=== PATIENT | male | born 1990 | race Two or more races ===

== ENCOUNTER 2022-04-17 12:22 | Inpatient (IN) | payer OTHER, SELFPAY ==
--- NOTE | ~2022-04-17 | CT_ITS ---
EXAMINATION: CT ABDOMEN AND PELVIS WITHOUT CONTRAST CLINICAL INFORMATION: Abdominal pain and nausea. COMPARISON: None TECHNIQUE: Multidetector volumetric imaging was performed from the superior aspect of the liver through the pubic symphysis. Sagittal and coronal reformatted images were obtained on the technologist's workstation. This CT examination was performed using dose optimization techniques as appropriate, variously including the following: *Automated exposure control *Adjustment of mA and/or kV according to patient size (this includes techniques or standardized protocols for targeted exams where dose is matched to indication/reason for exam; i.e. extremities or head) *Use of iterative reconstruction technique DLP: 561 mGy-cm FINDINGS: LUNG BASES: Normal. No pulmonary consolidation or pleural effusion. LIVER: The liver has normal size and shape. There appears to be mild steatosis with small region of sparing around the gallbladder fossa. No evidence of liver mass. GALLBLADDER AND BILIARY TREE: Gallbladder is without radiopaque stones, wall thickening or pericholecystic fluid. No dilated bile ducts. PANCREAS: Normal. No edema, pancreatic ductal dilatation or mass. SPLEEN: Normal. ADRENAL GLANDS: Normal. KIDNEYS AND URETERS: The kidneys have normal size and cortical thickness. No perinephric edema or fluid collection. No urolithiasis or hydroureteronephrosis. BLADDER: The bladder is incompletely distended and has a wall thickness of 5 - 6 mm. No focal bladder lesion. No perivesical edema. BOWEL AND PERITONEUM: Stomach and small bowel are unremarkable. No dilated loops of bowel. The appendix is normal. No overt bowel wall thickening or mesenteric fat stranding. No free fluid or pneumoperitoneum. ABDOMINAL WALL: Small fat-containing umbilical hernia is noted. VASCULATURE: Normal for a noncontrast examination. LYMPH NODES: No pathologic sized lymph nodes in the abdomen or pelvis. No inguinal lymphadenopathy. PELVIC VISCERA: Prostate gland is grossly normal. No pelvic mass or pelvic free fluid. MUSCULOSKELETAL: Unremarkable. CT/CT abdomen pelvis wo IV con IMPRESSION: * The gastrointestinal tract is normal. No evidence of enteritis or appendicitis. * Mild steatosis of the liver. * Small fat-containing umbilical hernia is present. * There appears to be borderline generalized thickening of the urinary bladder wall, a finding of questionable if any significance. No evidence of focal bladder lesion, and there is no perivesical edema.
[2022-04-17 12:41] VITALS: BP 136/104; PULSE 113; RESP 18; TEMP 36.5; O2SAT 97; BMI 28.6
--- NOTE | 2022-04-17 12:45 | ED.NAVMDI ---
HPI - Nausea/Vomiting/Diarrhea General Chief complaint: General Medical <Jailene Boyd MD - Last Filed: 04/17/22 12:51> Stated complaint: Dehydrated Dizzy Weak <Jailene Boyd MD - Last Filed: 04/17/22 12:51> Time Seen by Provider: 04/17/22 12:52 <Jailene Boyd MD - Last Filed: 04/17/22 12:51> Source: patient <DAYNA Dai - Last Filed: 04/17/22 22:08> Mode of arrival: ambulatory <DAYNA Dai - Last Filed: 04/17/22 22:08> Limitations: no limitations <DAYNA Dai - Last Filed: 04/17/22 22:08> History of Present Illness HPI Narrative: Edis is a 31 yo male with no PMHx who presents today to the emergency department with a CC of sudden onset of increased thirst and increased urination. Pt said his symptoms started this morning where he woke up exceptionally thirsty. He tried water, milk, juice, amirah isi, but nothing has helped. He was able to eat Vicino today but says that everything tastes like nickels. He additionally endorses some nausea, abdominal pain, and fatigue, but denies fevers, chills, shortness of breath, chest pain, vomiting, diarrhea, constipation, or blood in the urine, as well as burning with urination. He has never had this happen before and feels like his symptoms are getting progressively worse. Patient's mother has a history of diabetes. <DAYNA Dai - Last Filed: 04/17/22 22:08> MD elicited complaint: nausea, abdominal pain and other (polydipsia, polyuria) <DAYNA Dai - Last Filed: 04/17/22 22:08> Onset (ago): hour(s) <DAYNA Dai - Last Filed: 04/17/22 22:08> Associated nausea: Yes <DAYNA Dai - Last Filed: 04/17/22 22:08> Associated abdominal pain: Yes <DAYNA Dai - Last Filed: 04/17/22 22:08> Location of pain: epigastric <DAYNA Dai - Last Filed: 04/17/22 22:08> Radiation: diffuse <DAYNA Dai - Last Filed: 04/17/22 22:08> Pain consistency: constant <DAYNA Dai - Last Filed: 04/17/22 22:08> Severity: severe <DAYNA Dai - Last Filed: 04/17/22 22:08> Quality: aching <DAYNA Dai - Last Filed: 04/17/22 22:08> Exacerbating factors: none <DAYNA Dai - Last Filed: 04/17/22 22:08> Relieving factors: none <DAYNA Dai - Last Filed: 04/17/22 22:08> Associated symptoms: fatigue <DAYNA Dai - Last Filed: 04/17/22 22:08> Related Data Home medications: Home Medications Medication Instructions Recorded Confirmed No Known Home Meds 04/17/22 04/17/22 <Jailene Boyd MD - Last Filed: 04/17/22 12:51> Allergies/Adverse reactions: Allergies Allergy/AdvReac Type Severity Reaction Status Date / Time No Known Allergies Allergy Verified 04/17/22 12:39 <Jailene Boyd MD - Last Filed: 04/17/22 12:51> Review of Systems Constitutional: Constitutional: Reports no additional constitutional complaints, Denies chills, Reports fatigue, Denies fever(s) and Denies night sweats <DAYNA Dai - Last Filed: 04/17/22 22:08> Eyes: Eyes: Reports no additional eye complaints, Denies blurry vision, Denies change in vision, Denies diplopia, Denies eye discharge, Denies loss of vision and Denies eye pain <DAYNA Dai - Last Filed: 04/17/22 22:08> ENT: Denies dizziness <DAYNA Dai - Last Filed: 04/17/22 22:08> Cardiovascular: Cardiovascular: Reports no additional cardiovascular complaints, Denies chest pain, Denies lightheadedness, Denies Loss of Consciousness and Denies dyspnea <DAYNA Dai - Last Filed: 04/17/22 22:08> Respiratory: Respiratory: Reports no additional respiratory complaints and Denies dyspnea <DAYNA Dai - Last Filed: 04/17/22 22:08> Gastrointestinal: Gastrointestinal: Reports abdominal pain and Reports nausea <DAYNA Dai - Last Filed: 04/17/22 22:08> Genitourinary: Genitourinary: Reports no additional male genitourinary complaints, Denies hematuria, Denies oliguria, Denies difficulty urinating, Denies dysuria, Denies urinary frequency, Denies urinary hesitancy, Denies urinary incontinence and Denies urinary urgency <DAYNA Dai - Last Filed: 04/17/22 22:08> Musculoskeletal: Musculoskeletal: Reports no additional musculoskeletal complaints, Denies numbness and Denies tingling <DAYNA Dai - Last Filed: 04/17/22 22:08> Neurologic: Denies dizziness, Denies loss of vision, Denies numbness and Denies tingling <DAYNA Dai - Last Filed: 04/17/22 22:08> Psychiatric: Psychiatric: Reports no additional psychiatric complaints <DAYNA Dai - Last Filed: 04/17/22 22:08> Endocrine: Endocrine: Reports no additional endocrine complaints, Reports fatigue, Reports polydipsia and Reports polyuria <DAYNA Dai - Last Filed: 04/17/22 22:08> Hematologic/Lymphatic: Hematologic/Lymphatic: Reports no additional hematologic/lymphatic complaints <DAYNA Dai - Last Filed: 04/17/22 22:08> Allergic/Immunologic: Allergic/Immunologic: Reports no additional allergic/immunologic complaints <DAYNA Dai - Last Filed: 04/17/22 22:08> FOR[facility]LY [facility] Past Medical History Attestation statement: The following information was validated with the patient. <DAYNA Dai - Last Filed: 04/17/22 22:08> Source: old records reviewed and nursing notes reviewed <DAYNA Dai - Last Filed: 04/17/22 22:08> Family History Family History: Family History Mother Diabetes <Jailene Boyd MD - Last Filed: 04/17/22 12:51> Social History Social History: Social History Alcohol intake: never Patient Tobacco Use Status: Never used Tobacco Use of substances other than those prescribed or required for medical reasons: No Advance Directives: No <Jailene Boyd MD - Last Filed: 04/17/22 12:51> Physical Exam Vital Signs: Vital Signs: Last Vital Signs Temp 98.0 F 04/17/22 19:32 Pulse 78 04/17/22 19:32 Resp 18 04/17/22 19:32 BP 101/66 04/17/22 19:32 Pulse Ox 96 04/17/22 19:32 O2 Del Method 04/17/22 19:32 BMI result Body Mass Index 28.6 <Jailene Boyd MD - Last Filed: 04/17/22 12:51> Vital Signs: Last Vital Signs Temp 98.0 F 04/17/22 19:32 Pulse 78 04/17/22 19:32 Resp 18 04/17/22 19:32 BP 101/66 04/17/22 19:32 Pulse Ox 96 04/17/22 19:32 O2 Del Method 04/17/22 19:32 BMI result Body Mass Index 28.6 <DAYNA Dai - Last Filed: 04/17/22 22:08> Const: General: cooperative, no acute distress, alert and awake <DAYNA Dai - Last Filed: 04/17/22 22:08> Nutritional Appearance: well nourished <DAYNA Dai - Last Filed: 04/17/22 22:08> Orientation/consciousness: patient oriented x3 <DAYNA Dai - Last Filed: 04/17/22 22:08> Limitations: no limitations <DAYNA Dai - Last Filed: 04/17/22 22:08> HEENT: Head: Yes normal to inspection and Yes atraumatic <DAYNA Dai - Last Filed: 04/17/22 22:08> Ears: hearing grossly normal bilaterally and external ears normal <DAYNA Dai - Last Filed: 04/17/22 22:08> General nose exam: Normal external nose present, no nasal discharge noted and no epistaxis <DAYNA Dai - Last Filed: 04/17/22 22:08> Face and sinus: Yes normal facial exam, No abrasion and No laceration <Tomasa FrancesDAYNA - Last Filed: 04/17/22 22:08> Mouth: Normal oral and palatal mucosa present, no drooling and no muffled voice <Tomasa FrancesDAYNA - Last Filed: 04/17/22 22:08> Eyes: General: appearance normal, both eyes and all related structures <Tomasa FrancesDAYNA - Last Filed: 04/17/22 22:08> Periorbital: periorbital findings normal <Tomasa Frances [place] - Last Filed: 04/17/22 22:08> Eyelids: Yes eyelids normal <Tomasa Frances [place] - Last Filed: 04/17/22 22:08> Conjunctivae: conjunctivae normal <Tomasa FrancesDAYNA - Last Filed: 04/17/22 22:08> Pupils: Equal, round and reactive pupils present <Tomasa FrancesDAYNA - Last Filed: 04/17/22 22:08> EOM: EOMs intact bilaterally <Tomasa LainezDAYNA benz - Last Filed: 04/17/22 22:08> Neck: Neck: Yes normal visual inspection, Yes full ROM and Yes no lymphadenopathy <Tomasa FrancesDAYNA - Last Filed: 04/17/22 22:08> Chest: Chest palpation & inspection: normal inspection of the chest <Tomasa LainezDAYNA benz - Last Filed: 04/17/22 22:08> Resp: Effort & Inspection: normal respiratory effort and able to speak in complete sentences <Tomasatomeka LainezDAYNA benz - Last Filed: 04/17/22 22:08> Auscultation: clear to auscultation bilaterally <Tomasa Laineztuyet [place] - Last Filed: 04/17/22 22:08> Cardio: Rate: tachycardic <Tomasa LainezDAYNA benz - Last Filed: 04/17/22 22:08> Rhythm: regular rhythm <Tomasa LainezDAYNA benz - Last Filed: 04/17/22 22:08> GI: Inspection: Yes normal to inspection <Tomasa LainezDAYNA benz - Last Filed: 04/17/22 22:08> Palpation (GI): Soft to palpation, not firm, Tenderness to palpation present (GI) in the epigastrum, in the LLQ, in the RLQ, in the LUQ and in the RUQ, no guarding and not rigid <DAYNA Dai - Last Filed: 04/17/22 22:08> Auscultation: normal bowel sounds <DAYNA Dai - Last Filed: 04/17/22 22:08> Neuro: General: patient oriented x3 and moves all extremities <DAYNA Dai - Last Filed: 04/17/22 22:08> Cranial nerves: Yes Equal, round and reactive pupils present <DAYNA Dai - Last Filed: 04/17/22 22:08> Cognition (Neuro): normal cognition <DAYNA Dai - Last Filed: 04/17/22 22:08> Motor exam (neuro): 5/5 motor strength present throughout <DAYNA Dai - Last Filed: 04/17/22 22:08> Sensory Exam: Normal double simultaneous stimulation for sensation <DAYNA Dai - Last Filed: 04/17/22 22:08> Coordination: [id number] test normal <DAYNA Dai - Last Filed: 04/17/22 22:08> Extrem: General: Yes normal to inspection, Yes full ROM and Yes capillary refill normal <DAYNA Dai - Last Filed: 04/17/22 22:08> Psych: Appearance: grossly normal <DAYNA Dai - Last Filed: 04/17/22 22:08> Mental Status: mental status grossly normal <DAYNA Dai - Last Filed: 04/17/22 22:08> Affect: normal affect <DAYNA Dai - Last Filed: 04/17/22 22:08> Attitude: cooperative <DAYNA Dai - Last Filed: 04/17/22 22:08> Thought process: Normal thought process present <DAYNA Dai - Last Filed: 04/17/22 22:08> Thought content: Normal thought content present <DAYNA Dai - Last Filed: 04/17/22 22:08> Insight: Good insight present (Psych) <DAYNA Dai - Last Filed: 04/17/22 22:08> Course Course Course Narrative: rme <Jailene Boyd MD - Last Filed: 04/17/22 12:51> marky Randhawa is a 31 yo male with no PMHx who presents today to the emergency department with a CC of polydipsia, polyuria, with abdominal pain and fatigue with an onset of 24 hours. Pt denies all other associated signs and symptoms. POC glucose at bedside is >600 mg/dL which is highly suggestive of hyperosmolar hyperglycemic state. 13:03 labs still pending. <DAYNA Dai - Last Filed: 04/17/22 22:08> Reevaluation(s) Reevaluation #1: 13:04 WBC elevated to 14.2, Hgb elevated 5.95-suspicious for infectious process. Blood gas shows pH of 7.32, HCO3 low at 17-slightly acidotic, additional POC glucose again greater than 600 UA shows glucose level above 1000, slightly dehydrated, small elevated acetone <DAYNA Dai - Last Filed: 04/17/22 22:08> Time: 13:04 <DAYNA Dai - Last Filed: 04/17/22 22:08> Reevaluation #2: HA1C is 14, consistent with diabetes mellitus <DAYNA Dai - Last Filed: 04/17/22 22:08> Time: 13:11 <DAYNA Dai - Last Filed: 04/17/22 22:08> Reevaluation #3: POC glucose decreased to 462 after 2 L of lactated ringers and 10 units of insulin, will give additional 10 units <DAYNA Dai - Last Filed: 04/17/22 22:08> Time: 15:53 <DAYNA Dai - Last Filed: 04/17/22 22:08> Consultations Consultation #1: Patient is a 31-year-old male with no significant past medical history presents today with having epigastric pain generalized malaise weakness not feeling right having nausea. Patient has been feeling increasing urination. Feeling thirsty all the time. Very weak and tired. Symptoms been getting worse over the last few days. Family presents to the ED for further evaluation. No history of diabetes in the past. No past medical history in the past. No coughing or congestion or upper respiratory symptoms. Positive mild headache. Patient's POC glucose was read as high high. Symptoms consistent with diabetic ketoacidosis/hyperglycemia. Will send patient back to the main ED right away. IV fluids labs ordered <Jailene Boyd MD - Last Filed: 04/17/22 12:51> Medications Administered Generic Name Dose Route Start Last Admin Trade Name Freq PRN Reason Stop Dose Admin Sodium Chloride 1,000 mls @ 100 mls/hr 04/17/22 18:00 04/17/22 20:37 Ns IVCONT Not Given .Q10H KARIE Insulin Human Lispro 0 unit 04/17/22 18:00 04/17/22 20:24 Insulin Lispro 100 Unit/Ml 3 Ml Vial SUBCUT 8 unit Q2H KARIE Administration Protocol Discontinued Medications Generic Name Dose Route Start Last Admin Trade Name Freq PRN Reason Stop Dose Admin Sodium Chloride 1,000 mls @ 999 mls/hr 04/17/22 12:45 04/17/22 14:37 Ns IV 04/17/22 13:45 Infused .Q1H1M KARIE Infusion Sodium Chloride 1,000 mls @ 999 mls/hr 04/17/22 13:00 04/17/22 15:45 Ns IV 04/17/22 14:00 Infused .Q1H1M KARIE Infusion Lactated Ringer's 1,000 mls @ 999 mls/hr 04/17/22 15:15 04/17/22 15:46 Lr IV 04/17/22 16:15 999 mls/hr .Q1H1M KARIE Administration Insulin Human Regular 10 unit 04/17/22 13:22 04/17/22 13:39 Insulin Regular, Human 100 Unit/Ml 3 Ml Vial IVPUSH 04/17/22 13:23 10 unit ONCE ONE Administration Insulin Human Regular 10 unit 04/17/22 15:55 04/17/22 16:22 Insulin Regular, Human 100 Unit/Ml 3 Ml Vial IVPUSH 04/17/22 15:56 10 unit ONCE ONE Administration Ondansetron HCl 4 mg 04/17/22 12:41 04/17/22 13:18 Ondansetron Hcl 4 Mg/2 Ml Vial IVPUSH 04/17/22 12:42 4 mg ONCE ONE Administration <Jailene Boyd MD - Last Filed: 04/17/22 12:51> Medications Administered Generic Name Dose Route Start Last Admin Trade Name Freq PRN Reason Stop Dose Admin Sodium Chloride 1,000 mls @ 100 mls/hr 04/17/22 18:00 04/17/22 20:37 Ns IVCONT Not Given .Q10H KARIE Insulin Human Lispro 0 unit 04/17/22 18:00 04/17/22 20:24 Insulin Lispro 100 Unit/Ml 3 Ml Vial SUBCUT 8 unit Q2H KARIE Administration Protocol Discontinued Medications Generic Name Dose Route Start Last Admin Trade Name Lissy PRN Reason Stop Dose Admin Sodium Chloride 1,000 mls @ 999 mls/hr 04/17/22 12:45 04/17/22 14:37 Ns IV 04/17/22 13:45 Infused .Q1H1M KARIE Infusion Sodium Chloride 1,000 mls @ 999 mls/hr 04/17/22 13:00 04/17/22 15:45 Ns IV 04/17/22 14:00 Infused .Q1H1M KARIE Infusion Lactated Ringer's 1,000 mls @ 999 mls/hr 04/17/22 15:15 04/17/22 15:46 Lr IV 04/17/22 16:15 999 mls/hr .Q1H1M KARIE Administration Insulin Human Regular 10 unit 04/17/22 13:22 04/17/22 13:39 Insulin Regular, Human 100 Unit/Ml 3 Ml Vial IVPUSH 04/17/22 13:23 10 unit ONCE ONE Administration Insulin Human Regular 10 unit 04/17/22 15:55 04/17/22 16:22 Insulin Regular, Human 100 Unit/Ml 3 Ml Vial IVPUSH 04/17/22 15:56 10 unit ONCE ONE Administration Ondansetron HCl 4 mg 04/17/22 12:41 04/17/22 13:18 Ondansetron Hcl 4 Mg/2 Ml Vial IVPUSH 04/17/22 12:42 4 mg ONCE ONE Administration <DAYNA Dai - Last Filed: 04/17/22 22:08> Medical Decision Making Medical Decision Making MDM Narrative: Patient is a 31 year old assigned male at with no reported medical history presenting to the emergency department today with increased thirst, abdominal pain, and nausea. Patient's physical exam showed generalized abdominal tenderness and tachycardia. Patient's POC glucose at the bedside was >600. Patient's blood work showed an initially elevated anion gap of 28, an elevated CR of 1.85, an elevated BUN of 35, an elevated sugar of 720, and an elevated WBC count of 14.2. Patient's EKG was unremarkable. Patient's abdomen/pelvis CT showed no acute process. Patient was initially given 2L of NS with 10 units of regular insulin, IV - as recommended by my attending physician Dr. Anne. CMP was repeated which showed a decrease in glucose level to 446, a decrease in anion gap to 21, a decrease of BUN to 28, and a decrease of CR to 1.36. At that time I consulted with my attending physician Dr. Anne again who recommended an additional 10 units of IV regular insulin and 1L of lactated ringers. I spoke to the hospitalist team who agreed to admission. I explained my physical exam findings as well as all test results to the patient and the patient's mother. I answered all questions asked by the patient and the patient's mother. Patient and the patient's mother verbalized agreement and understanding with this treatment plan and admission. <DAYNA Dai - Last Filed: 04/17/22 22:08> Differential Diagnoses: Differential diagnosis (DKA) <DAYNA Dai - Last Filed: 04/17/22 22:08> Discussion of management with other physician/healthcare provider/other source (e.g., hospitalist, franchise business consultant, behavioral health): Discussion w/other physician/healthcare provider (This patient's treatment and disposition was all discussed with my attending physician, Dr. Douglas.) Management of the patient was discussed with: Hospitalist Agreed to hospital admission. <DAYNA Dai - Last Filed: 04/17/22 22:08> Lab Attestation: I reviewed the patient's lab results. <DAYNA Dai - Last Filed: 04/17/22 22:08> Independent interpretation of EKG, rhythm strip, radiology study: Independent interp EKG,rhythm strip, radiology study I performed an independent interpretation of the: EKG Vent. Rate: 093 BPM ? ? Atrial Rate: 093 BPM P-R Int: 158 ms? QRS Dur: 098 ms QT Int: 346 ms ? ? ? P-R-T Axes: 072 069 028 degrees QTc Int: 430 ms ? Normal sinus rhythm Right atrial enlargement Borderline ECG No previous ECGs available DD/ [id number] <DAYNA Dai - Last Filed: 04/17/22 22:08> Discussion of test interpretation with radiology: Discussion of test interpretation with radiology The results of this study were not discussed with the radiologist however, the radiologist shared their impression via this written report. EXAMINATION: CT ABDOMEN AND PELVIS WITHOUT CONTRAST? CLINICAL INFORMATION: Abdominal pain and nausea.? COMPARISON: None? TECHNIQUE: Multidetector volumetric imaging was performed from the superior aspect of the liver through the pubic symphysis. Sagittal and coronal reformatted images were obtained on the technologist's workstation.? This CT examination was performed using dose optimization techniques as appropriate, variously including the following: *Automated exposure control *Adjustment of mA and/or kV according to patient size (this includes techniques or standardized protocols for targeted exams where dose is matched to indication/reason for exam; i.e. extremities or head) *Use of iterative reconstruction technique DLP: 561 mGy-cm FINDINGS: LUNG BASES: Normal. No pulmonary consolidation or pleural effusion.? LIVER: The liver has normal size and shape. There appears to be mild steatosis with small region of sparing around the gallbladder fossa. No evidence of liver mass. GALLBLADDER AND BILIARY TREE: Gallbladder is without radiopaque stones, wall thickening or pericholecystic fluid.? No dilated bile ducts. PANCREAS: Normal. No edema, pancreatic ductal dilatation or mass.? SPLEEN: Normal.? ADRENAL GLANDS: Normal.? KIDNEYS AND URETERS: The kidneys have normal size and cortical thickness. No perinephric edema or fluid collection. No urolithiasis or hydroureteronephrosis. BLADDER:? The bladder is incompletely distended and has a wall thickness of 5 - 6 mm. No focal bladder lesion. No perivesical edema. BOWEL AND PERITONEUM: Stomach and small bowel are unremarkable. No dilated loops of bowel. The appendix is normal. No overt bowel wall thickening or mesenteric fat stranding. No free fluid or pneumoperitoneum. ABDOMINAL WALL: Small fat-containing umbilical hernia is noted.? VASCULATURE: Normal for a noncontrast examination. LYMPH NODES: No pathologic sized lymph nodes in the abdomen or pelvis. No inguinal lymphadenopathy. PELVIC VISCERA: Prostate gland is grossly normal. No pelvic mass or pelvic free fluid. MUSCULOSKELETAL: Unremarkable.? CT/CT abdomen pelvis wo IV con IMPRESSION: *? The gastrointestinal tract is normal. No evidence of enteritis or appendicitis. *? Mild steatosis of the liver. *? Small fat-containing umbilical hernia is present. *? There appears to be borderline generalized thickening of the urinary bladder wall, a finding of questionable if any significance. No evidence of focal bladder lesion, and there is no perivesical edema. Dictated By: Montrell Nair MD Signed By: Electronically signed by Montrell Nair MD 04/17/22 1505 <DAYNA Dai - Last Filed: 04/17/22 22:08> Critical Care Time Critical Care Time Critical Care Time: Yes <DAYNA Dai - Last Filed: 04/17/22 22:08> Total Critical Care Time: 45 <DAYNA aDi - Last Filed: 04/17/22 22:08> Attestation: I spent 45 minutes of Critical Care Time with this patient. This does not include time spent on separately reported billable procedures. <DAYNA Dai - Last Filed: 04/17/22 22:08> Discharge Plan Discharge Clinical Impression: DKA (diabetic ketoacidosis) <Jailene Boyd MD - Last Filed: 04/17/22 12:51> Patient Disposition: Admitted As Inpatient <Jailene Boyd MD - Last Filed: 04/17/22 12:51>
--- NOTE | 2022-04-17 12:49 | ECG_ITS ---
Test Reason : Abdominal Pain Blood Pressure : / mmHG Vent. Rate : 093 BPM Atrial Rate : 093 BPM P-R Int : 158 ms QRS Dur : 098 ms QT Int : 346 ms P-R-T Axes : 072 069 028 degrees QTc Int : 430 ms Normal sinus rhythm Right atrial enlargement Borderline ECG No previous ECGs available Referred By: Jailene Boyd Electronically Signed By:SHAVON MIKE MD
[2022-04-17 12:55] LABS: Glucose, Whole Blood > 600 mg/dL (60-115)
--- NOTE | 2022-04-17 13:07 | PC.NURSE ---
pt a&ox3, hypertensive, other vss, 20G IV placed right AC, labs/urine obtained. no new orders at this time.
[2022-04-17 13:13] LABS: MANUAL DIFF FLAG NO
[2022-04-17] MEDS: 0.9 % Sodium Chloride 1,000 ML 999 ML IV ×2 (13:13→14:37)
[2022-04-17 13:14] LABS: Venous Blood Gas Refer to POC result
[2022-04-17 13:15] LABS: VBG Base Excess -7.3 mmol/L; VBG HCO3 17 mmol/L (22-26); VBG pCO2 32 mmHg; VBG pH 7.32 (7.32-7.43); VBG pO2 56 mmHg
[2022-04-17 13:16] LABS: Basophils Percent Auto 0.3 % (0-2); Eosinophils Percent Auto 0.1 % (0-4); Hemoglobin 16.9 g/dl (14.0-18.0); Imm Gran Abs Auto 0.06 X10*3/uL (0.00-0.03); Imm Gran Pct Auto 0.4 % (0.0-0.4); Lymphocytes Absolute Auto 1.8 X10*3/uL (1.2-4.9); Lymphocytes Percent Auto 12.6 % (20-40); Mean Corpuscular HGB Conc 35.2 g/dl (31.0-36.0); Mean Corpuscular Hemoglobin 28.4 pg (27.0-33.0); Mean Corpuscular Volume 80.7 fL (80.0-98.0); Mean Platelet Volume 12.5 fL (9.4-12.4); Monocytes Absolute Auto 0.6 X10*3/uL (0.1-1.2); Monocytes Percent Auto 4.2 % (2-11); Neutrophils Absolute Auto 11.7 x10*3/uL (2.0-8.3); Neutrophils Percent Auto 82.4 % (45-73); Platelet Count 286 X10*3/uL (160-400); Red Blood Count 5.95 X10*6/uL (4.60-5.80); Red Cell Distribution Width 11.9 % (11.0-16.0); White Blood Count 14.2 X10*3/uL (4.8-10.8)
[2022-04-17] MEDS: ondansetron HCL 4 MG/2 ML VIAL IVPUSH (13:18)
[2022-04-17 13:19] LABS: Appearance Urine Clear; Color Urine Yellow; Glucose Urine UA >=1000 mg/dL (Negative); Leukocyte Esterase Urine Negative (Negative); Nitrite Urine Negative (Negative); Specific Gravity - Urine >= 1.030 (1.005-1.025); UMIC TRIGGER UACC YES; Urine Blood Negative (Negative); Urine Ketones 40 mg/dL (Negative); Urine Protein 30 (1+) mg/dL (Neg-Trace)
[2022-04-17 13:24] LABS: Bacteria Urine None Seen (None Seen); Hyaline Casts Urine 0-2 /LPF (0-2); RBC Urine 0-2 /HPF (0-2); Squamous Epithelial Cell Urine 0-2 /HPF (0-2); WBC Urine 0-5 /HPF (0-5)
[2022-04-17 13:27] LABS: Glucose, Whole Blood > 600 mg/dL (60-115)
[2022-04-17 13:29] LABS: Glucose, Whole Blood > 600 mg/dL (60-115)
[2022-04-17] MEDS: Insulin Regular, Human 100 UNIT/ML 3 ML VIAL 10 UNIT IVPUSH ×2 (13:39→16:22)
--- NOTE | 2022-04-17 13:44 | PC.NURSE ---
pt medicated w IV insulin per provider order, ivf running, POC rechecks pending - tech aware.
[2022-04-17 13:49] LABS: Alanine Aminotransferase 34 U/L (0-40); Albumin Level 5.6 g/dL (3.5-5.0); Alkaline Phosphatase 139 U/L (39-117); Anion Gap 28 (12-20); Aspartate Amino Transferase 16 U/L (5-37); Bilirubin Direct 0.3 mg/dL (0.0-0.5); Blood Urea Nitrogen 35 mg/dL (9-16); Calcium 11.5 mg/dL (8.4-10.2); Carbon Dioxide 18 mmol/L (22-29); Chloride 90 mmol/L (96-108); Creatinine Clr Calc Pharmacy 52.8; Estimated Glomerular Filt Rate 42; Lipase 20 U/L (8-78); Potassium 5.1 mmol/L (3.3-5.1); Sodium 131 mmol/L (135-145); Total Protein 9.1 g/dL (6.5-8.0)
[2022-04-17 13:50] LABS: Acetone, serum QL Small (Negative); Calcium 11.5 mg/dL (8.4-10.2); Magnesium 2.4 mg/dL (1.6-2.6)
[2022-04-17 13:51] LABS: Influenza A PCR NEGATIVE (Negative); Influenza B PCR NEGATIVE (Negative); Resp Syncy Virus RNA Qual PCR NEGATIVE (Negative); SARS COV2 PCR INHOUSE NEGATIVE (Negative)
[2022-04-17 13:57] VITALS: BP 150/93; PULSE 100; RESP 16; O2SAT 96
[2022-04-17 14:01] LABS: Glucose, Whole Blood > 600 mg/dL (60-115)
[2022-04-17 14:11] LABS: Glucose Random 720 mg/dL (60-115)
[2022-04-17 14:38] LABS: Hemoglobin A1c % > 14.0 %
[2022-04-17 14:52] LABS: Glucose, Whole Blood 466 mg/dL (60-115)
[2022-04-17] MEDS: Lactated Ringers 1,000 ML 999 ML IV (15:46)
[2022-04-17 15:58] LABS: Glucose, Whole Blood 462 mg/dL (60-115)
[2022-04-17 16:50] LABS: Alanine Aminotransferase 27 U/L (0-40); Albumin Level 4.6 g/dL (3.5-5.0); Alkaline Phosphatase 110 U/L (39-117); Anion Gap 21 (12-20); Aspartate Amino Transferase 12 U/L (5-37); Bilirubin Total 0.7 mg/dL (0.0-1.0); Blood Urea Nitrogen 28 mg/dL (9-16); Calcium 9.4 mg/dL (8.4-10.2); Carbon Dioxide 19 mmol/L (22-29); Chloride 105 mmol/L (96-108); Creatinine Clr Calc Pharmacy 71.9; Estimated Glomerular Filt Rate > 60; Glucose Random 446 mg/dL (60-115); Potassium 4.9 mmol/L (3.3-5.1); Sodium 140 mmol/L (135-145); Total Protein 7.2 g/dL (6.5-8.0)
[2022-04-17 17:09] VITALS: BP 136/88; PULSE 85; RESP 18; TEMP 36.8; O2SAT 98
[2022-04-17 17:20] LABS: Glucose, Whole Blood 311 mg/dL (60-115)
--- NOTE | 2022-04-17 18:02 | P.HPHOSP_ITS ---
History of Present Illness Date of Service: 04/17/22 Chief Complaint: abd pain, polydypsia 31M no significant PMH, presented with 3 day history feeling unwell. Patient reports that he has been drinking more than usual and urinating more than usual. Unable to quench his thirst. Feeling unwell with decreased appetite and abdominal pain. Denies nausea vomiting. Patient's mother has diabetes type 2. In ED noted to be in diabetic ketoacidosis with an anion gap of 28, A1c over 14, glucose over 600, HUGO with a creatinine of 1.85. Patient was given IV fluids and insulin and creatinine improved as well as glucose and anion gap. Patient has an appetite, denies fever chills. Review of Systems Review of Systems: Constitutional: Denies fever, denies Chills Eyes: denies blurry vision ENT: denies sore throat CVS: denies chest pain Respiratory: Denies dyspnea GI: abdominal pain : denies dysuria MSK: denies neck pain Skin: denies rash Neuro: denies specific motor weakness Psych: denies suicidal ideation Endocrine: denies heat/cold intolerance Hematologic: denies easy bleeding Allergy: denies hives PMFSH Family History Mother Diabetes Social History Alcohol intake: never Patient Tobacco Use Status: Never used Tobacco Use of substances other than those prescribed or required for medical reasons: No Advance Directives: No Meds Allergies Allergy/AdvReac Type Severity Reaction Status Date / Time No Known Allergies Allergy Verified 04/17/22 12:39 Active Medications: Current Medications Dextrose (Dextrose 50 % 25 Gm/50 Ml Syringe) 25 gm IVPUSH Q15M PRN; Protocol PRN Reason: per Hypoglycemia Standing Ord. Glucose (Glucose Gel 15 Gm Gel..Gram.) 15 gm PO Q15M PRN; Protocol PRN Reason: per Hypoglycemia Standing Ord. Sodium Chloride (Ns) 1,000 mls @ 100 mls/hr IVCONT .Q10H [facility] Insulin Human Lispro (Insulin Lispro 100 Unit/Ml 3 Ml Vial) 0 unit SUBCUT Q2H [facility]; Protocol Pharmacy Consult (Consult Rx Perform Med Rec) 1 each MISCELLANE ONCE PRN PRN Reason: patient will be admitted Home Medications Medication Instructions Recorded Confirmed Last Taken Type No Known Home Meds 04/17/22 04/17/22 Unknown History Physical Exam Vital Signs and Narrative: Vital Signs: Last Vital Signs Temp 98.2 F 04/17/22 17:09 Pulse 85 04/17/22 17:09 Resp 18 04/17/22 17:09 BP 136/88 04/17/22 17:09 Pulse Ox 98 04/17/22 17:09 O2 Del Method 04/17/22 17:09 BMI result Body Mass Index 28.6 General: diaphoretic HEENT: atraumatic Neck: normal to visual inspection CVS: S1, S2, RRR Resp: CTA bilateral Chest: non tender GI: soft, non tender, non distended : no CVA tenderness Skin: no rashes Extremities: no edema Neuro: Oriented X3, grossly intact Psych: cooperative Results Labs CBC and Chem 7: 04/17/22 13:04 04/17/22 16:21 Labs: Laboratory Results - last 24 hr 04/17/22 04/17/22 04/17/22 12:46 13:04 13:04 MCV 80.7 MCH 28.4 MCHC 35.2 RDW 11.9 Plt Count 286 MPV 12.5 H Immature Gran % (Auto) 0.4 Neut % (Auto) 82.4 H Lymph % (Auto) 12.6 L [place] % (Auto) 4.2 Eos % (Auto) 0.1 Baso % (Auto) 0.3 Lymph # (Auto) 1.8 [place] # (Auto) 0.6 Eos # (Auto) 0.0 Baso # (Auto) 0.0 Abs Immat Gran (auto) 0.06 H Absolute Neuts (auto) 11.7 H Absolute Nucleated RBC 0.000 Nucleated RBC % (auto) 0.0 VBG pH VBG pCO2 VBG pO2 VBG HCO3 VBG O2 Saturation VBG Base Excess Anion Gap 28 H Estim Creat Clear Calc 52.8 Estimated GFR 42 POC Glucose > 600 H* Random Glucose 720 H* Estimat Average Glucose Hemoglobin A1c % Calcium 11.5 H Magnesium Total Bilirubin 1.0 Direct Bilirubin 0.3 AST 16 ALT 34 Alkaline Phosphatase 139 H Total Protein 9.1 H Albumin 5.6 H Lipase 20 Urine Color Urine Appearance Urine pH Ur Specific [place] Urine Protein Urine Glucose (UA) Urine Ketones Urine Blood Urine Nitrite Ur Leukocyte Esterase Urine RBC Urine WBC Ur Squamous Epith Cells Urine Bacteria Hyaline Casts Acetone, Qual Influenza Type A (PCR) Influenza Type B (PCR) RSV RNA Qual (PCR) SARS-CoV-2 RNA (RT-PCR) 04/17/22 04/17/22 04/17/22 13:04 13:06 13:06 MCV MCH MCHC RDW Plt Count MPV Immature Gran % (Auto) Neut % (Auto) Lymph % (Auto) [place] % (Auto) Eos % (Auto) Baso % (Auto) Lymph # (Auto) [place] # (Auto) Eos # (Auto) Baso # (Auto) Abs Immat Gran (auto) Absolute Neuts (auto) Absolute Nucleated RBC Nucleated RBC % (auto) VBG pH VBG pCO2 VBG pO2 VBG HCO3 VBG O2 Saturation VBG Base Excess Anion Gap Estim Creat Clear Calc Estimated GFR POC Glucose Random Glucose Estimat Average Glucose Hemoglobin A1c % Calcium 11.5 H Magnesium 2.4 Total Bilirubin Direct Bilirubin AST ALT Alkaline Phosphatase Total Protein Albumin Lipase Urine Color Yellow Urine Appearance Clear Urine pH 5.0 Ur Specific [place] >= 1.030 H Urine Protein 30 (1+) H Urine Glucose (UA) >=1000 H Urine Ketones 40 Urine Blood Negative Urine Nitrite Negative Ur Leukocyte Esterase Negative Urine RBC 0-2 Urine WBC 0-5 Ur Squamous Epith Cells 0-2 Urine Bacteria None Seen Hyaline Casts 0-2 Acetone, Qual Small H Influenza Type A (PCR) NEGATIVE Influenza Type B (PCR) NEGATIVE RSV RNA Qual (PCR) NEGATIVE SARS-CoV-2 RNA (RT-PCR) NEGATIVE 04/17/22 04/17/22 04/17/22 13:10 13:11 13:23 MCV MCH MCHC RDW Plt Count MPV Immature Gran % (Auto) Neut % (Auto) Lymph % (Auto) [place] % (Auto) Eos % (Auto) Baso % (Auto) Lymph # (Auto) [place] # (Auto) Eos # (Auto) Baso # (Auto) Abs Immat Gran (auto) Absolute Neuts (auto) Absolute Nucleated RBC Nucleated RBC % (auto) VBG pH 7.32 VBG pCO2 32 VBG pO2 56 VBG HCO3 17 L VBG O2 Saturation 81.0 VBG Base Excess -7.3 Anion Gap Estim Creat Clear Calc Estimated GFR POC Glucose > 600 H* Random Glucose Estimat Average Glucose TNP Hemoglobin A1c % > 14.0 Calcium Magnesium Total Bilirubin Direct Bilirubin AST ALT Alkaline Phosphatase Total Protein Albumin Lipase Urine Color Urine Appearance Urine pH Ur Specific [place] Urine Protein Urine Glucose (UA) Urine Ketones Urine Blood Urine Nitrite Ur Leukocyte Esterase Urine RBC Urine WBC Ur Squamous Epith Cells Urine Bacteria Hyaline Casts Acetone, Qual Influenza Type A (PCR) Influenza Type B (PCR) RSV RNA Qual (PCR) SARS-CoV-2 RNA (RT-PCR) 04/17/22 04/17/22 04/17/22 13:25 13:58 14:47 MCV MCH MCHC RDW Plt Count MPV Immature Gran % (Auto) Neut % (Auto) Lymph % (Auto) [place] % (Auto) Eos % (Auto) Baso % (Auto) Lymph # (Auto) [place] # (Auto) Eos # (Auto) Baso # (Auto) Abs Immat Gran (auto) Absolute Neuts (auto) Absolute Nucleated RBC Nucleated RBC % (auto) VBG pH VBG pCO2 VBG pO2 VBG HCO3 VBG O2 Saturation VBG Base Excess Anion Gap Estim Creat Clear Calc Estimated GFR POC Glucose > 600 H* > 600 H* 466 H* Random Glucose Estimat Average Glucose Hemoglobin A1c % Calcium Magnesium Total Bilirubin Direct Bilirubin AST ALT Alkaline Phosphatase Total Protein Albumin Lipase Urine Color Urine Appearance Urine pH Ur Specific [place] Urine Protein Urine Glucose (UA) Urine Ketones Urine Blood Urine Nitrite Ur Leukocyte Esterase Urine RBC Urine WBC Ur Squamous Epith Cells Urine Bacteria Hyaline Casts Acetone, Qual Influenza Type A (PCR) Influenza Type B (PCR) RSV RNA Qual (PCR) SARS-CoV-2 RNA (RT-PCR) 04/17/22 04/17/22 04/17/22 15:53 16:21 17:16 MCV MCH MCHC RDW Plt Count MPV Immature Gran % (Auto) Neut % (Auto) Lymph % (Auto) [place] % (Auto) Eos % (Auto) Baso % (Auto) Lymph # (Auto) [place] # (Auto) Eos # (Auto) Baso # (Auto) Abs Immat Gran (auto) Absolute Neuts (auto) Absolute Nucleated RBC Nucleated RBC % (auto) VBG pH VBG pCO2 VBG pO2 VBG HCO3 VBG O2 Saturation VBG Base Excess Anion Gap 21 H Estim Creat Clear Calc 71.9 Estimated GFR > 60 POC Glucose 462 H* 311 H Random Glucose 446 H* Estimat Average Glucose Hemoglobin A1c % Calcium 9.4 D Magnesium Total Bilirubin 0.7 Direct Bilirubin AST 12 ALT 27 Alkaline Phosphatase 110 Total Protein 7.2 Albumin 4.6 Lipase Urine Color Urine Appearance Urine pH Ur Specific [place] Urine Protein Urine Glucose (UA) Urine Ketones Urine Blood Urine Nitrite Ur Leukocyte Esterase Urine RBC Urine WBC Ur Squamous Epith Cells Urine Bacteria Hyaline Casts Acetone, Qual Influenza Type A (PCR) Influenza Type B (PCR) RSV RNA Qual (PCR) SARS-CoV-2 RNA (RT-PCR) Imaging Radiologist's Impressions: Impressions Abdomen/Pelvis CT 04/17/22 13:42 IMPRESSION: * The gastrointestinal tract is normal. No evidence of enteritis or appendicitis. * Mild steatosis of the liver. * Small fat-containing umbilical hernia is present. * There appears to be borderline generalized thickening of the urinary bladder wall, a finding of questionable if any significance. No evidence of focal bladder lesion, and there is no perivesical edema. Assessment and Plan (1) DKA (diabetic ketoacidosis): Status: Acute Plan 31M no pmh, presented with polydipsia and polyuria, found to be in diabetic ketoacidosis New onset diabetes with diabetic ketoacidosis complicated by acute kidney injury Likely type 2 diabetes IV fluids, insulin and point of cares Q2H for now, follow-up BMP Diabetes Education Low risk for DVT, encourage ambulation Full code Patient with new onset diabetes with diabetic ketoacidosis will require close monitoring and IV fluids, therefore, expected to require at least 2 midnights in the hospital inpatient. Quality Stroke Does the patient have a stroke diagnosis?: No VTE Prior VTE?: No VTE Risk Level:: Medical - low VTE Device Contraindication: Treatment Not Indicated VTE Drug Contraindication: Treatment Not Indicated
[2022-04-17 19:32] VITALS: BP 101/66; PULSE 78; RESP 18; TEMP 36.7; O2SAT 96
[2022-04-17 20:05] LABS: Glucose, Whole Blood 324 mg/dL (60-115)
[2022-04-17] MEDS: Insulin Lispro 100 UNIT/ML 3 ML VIAL SUBCUT ×2 (20:24→22:40)
[2022-04-17] MEDS: 0.9 % Sodium Chloride 1,000 ML 100 ML IVCONT (20:32)
[2022-04-17 21:33] LABS: Anion Gap 18 (12-20); Blood Urea Nitrogen 23 mg/dL (9-16); Calcium 9.2 mg/dL (8.4-10.2); Carbon Dioxide 20 mmol/L (22-29); Chloride 109 mmol/L (96-108); Creatinine Clr Calc Pharmacy 82.9; Estimated Glomerular Filt Rate > 60; Glucose Random 318 mg/dL (60-115); Potassium 4.4 mmol/L (3.3-5.1); Sodium 143 mmol/L (135-145)
--- NOTE | 2022-04-17 22:37 | MHC.CM.PN ---
CM met with admitted patient with bed assignment pending. A&Ox4. No health insurance. Just recently eligible at work. Has not completed paperwork. Financial services brochure given. No PCP. Needs first PCP appointment for d/c planning. Pt does not drive. Needs appointment with [facility] for convenience. No DME/services. Moderna x2. No booster. Lives w mother. No HCP on file. Reviewed, completed and signed. Copies given. Uploaded into [facility] and [facility]. HCP/mother Shaniquaradha Hardingdeb ([phone]). CM to follow for d/c needs.
[2022-04-17 22:38] LABS: Glucose, Whole Blood 244 mg/dL (60-115)
[2022-04-17 23:49] LABS: Glucose, Whole Blood 240 mg/dL (60-115)
[2022-04-18] MEDS: Insulin Glargine,Hum.rec.anlog 100 UNIT/ML 10 ML VIAL 15 UNIT SUBCUT ×2 (00:08→08:07)
--- NOTE | 2022-04-18 02:14 | PC.NURSE ---
This senior grant writer spoke to Dr. Michaels to clarify need for continuous nurse monitoring. Per MD patient does not require continuous cardiac minoring at this time. Order received for this nurse to discontinue the order for continuos cardiac monitoring. Patient transported to S3 floor by KYLAH Fernandez tech. Nurse to nurse report called to S3 floor by Vicky ED RN who spoke to Josie S3 RN.
[2022-04-18 02:44] VITALS: BMI 28.9
[2022-04-18 04:00] VITALS: BP 114/65; PULSE 64; RESP 18; TEMP 36.6; O2SAT 99
[2022-04-18] MEDS: 0.9 % Sodium Chloride 1,000 ML 100 ML IVCONT (04:45)
[2022-04-18 05:56] LABS: Hematocrit 39.5 % (42.0-52.0); Hemoglobin 13.5 g/dl (14.0-18.0); Mean Corpuscular HGB Conc 34.2 g/dl (31.0-36.0); Mean Corpuscular Hemoglobin 28.8 pg (27.0-33.0); Mean Corpuscular Volume 84.2 fL (80.0-98.0); Mean Platelet Volume 12.7 fL (9.4-12.4); Platelet Count 225 X10*3/uL (160-400); Red Blood Count 4.69 X10*6/uL (4.60-5.80); Red Cell Distribution Width 12.4 % (11.0-16.0)
[2022-04-18 06:07] LABS: Anion Gap 17 (12-20); Blood Urea Nitrogen 19 mg/dL (9-16); Calcium 8.9 mg/dL (8.4-10.2); Carbon Dioxide 23 mmol/L (22-29); Chloride 110 mmol/L (96-108); Creatinine Clr Calc Pharmacy 81.2; Estimated Glomerular Filt Rate > 60; Glucose Fasting 291 mg/dL (60-99); Potassium 4.7 mmol/L (3.3-5.1); Sodium 145 mmol/L (135-145)
[2022-04-18 07:15] LABS: Glucose, Whole Blood 268 mg/dL (60-115)
[2022-04-18 07:19] VITALS: BP 122/69; PULSE 65; RESP 16; TEMP 36.2; O2SAT 97
[2022-04-18] MEDS: Lactated Ringers 1,000 ML 100 ML IVCONT ×2 (08:07→20:46)
[2022-04-18] MEDS: Insulin Lispro 100 UNIT/ML 3 ML VIAL SUBCUT ×6 (08:07→20:48)
--- NOTE | 2022-04-18 09:29 | HO.PM.IMPN ---
Subjective Subjective Date of Service: 04/18/22 Interval History: cc: polyuria, polydypsia interval history:improved Cardiovascular Cardiovascular: Reports no additional cardiovascular complaints Respiratory Respiratory: Reports no additional respiratory complaints Physical Exam Vital Signs: Vital Signs: Last Vital Signs Temp 97.1 F 04/18/22 07:19 Pulse 65 04/18/22 07:19 Resp 16 04/18/22 07:19 BP 122/69 04/18/22 07:19 Pulse Ox 97 04/18/22 07:19 O2 Del Method 04/18/22 07:19 BMI result Body Mass Index 28.9 General: AO X 3, no acute distress Resp: CTA bilateral, no accessory muscles used CVS: S1,S2,RRR GI: soft, non tender, non distended Neuro: motor grossly intact, alert Psych: appropriate affect, appropriate insight Objective Data Active Medications Dextrose (Dextrose 50 % 25 Gm/50 Ml Syringe) 25 gm IVPUSH Q15M PRN; Protocol PRN Reason: per Hypoglycemia Standing Ord. Glucose (Glucose Gel 15 Gm Gel..Gram.) 15 gm PO Q15M PRN; Protocol PRN Reason: per Hypoglycemia Standing Ord. Sodium Chloride (Ns) 1,000 mls @ 100 mls/hr IVCONT .Q10H [facility] Last Admin: 04/18/22 04:45 Dose: 100 mls/hr Documented By: DAV Lactated Ringer's (Lr) 1,000 mls @ 100 mls/hr IVCONT .Q10H [facility] Last Admin: 04/18/22 08:07 Dose: 100 mls/hr Documented By: GREGORY Insulin Glargine (Insulin Glargine,Hum.Rec.Anlog 100 Unit/Ml 10 Ml Vial) 15 unit SUBCUT DAILY [facility] Last Admin: 04/18/22 08:07 Dose: 15 unit Documented By: GREGORY Insulin Human Lispro (Insulin Lispro 100 Unit/Ml 3 Ml Vial) 0 unit SUBCUT QIDACHS [facility]; Protocol Last Admin: 04/18/22 08:07 Dose: 6 unit Documented By: GREGORY Pharmacy Consult (Consult Rx Perform Med Rec) 1 each MISCELLANE ONCE PRN PRN Reason: patient will be admitted Sodium Chloride (0.9 % Sodium Chloride Flush 3 Ml Syringe) 3 ml IVFLUSH QSHIFT [facility] Last Admin: 04/18/22 00:07 Dose: Not Given Documented By: JAMES Non-Admin Reason: IV Running Labs CBC & Chem 7: 04/18/22 05:11 04/18/22 05:11 Labs: Laboratory Results - last 24 hr 04/17/22 04/17/22 04/17/22 12:46 13:04 13:04 MCV 80.7 MCH 28.4 MCHC 35.2 RDW 11.9 Plt Count 286 MPV 12.5 H Immature Gran % (Auto) 0.4 Neut % (Auto) 82.4 H Lymph % (Auto) 12.6 L [place] % (Auto) 4.2 Eos % (Auto) 0.1 Baso % (Auto) 0.3 Lymph # (Auto) 1.8 [place] # (Auto) 0.6 Eos # (Auto) 0.0 Baso # (Auto) 0.0 Abs Immat Gran (auto) 0.06 H Absolute Neuts (auto) 11.7 H Absolute Nucleated RBC 0.000 Nucleated RBC % (auto) 0.0 VBG pH VBG pCO2 VBG pO2 VBG HCO3 VBG O2 Saturation VBG Base Excess Anion Gap 28 H Estim Creat Clear Calc 52.8 Estimated GFR 42 POC Glucose > 600 H* Random Glucose 720 H* Fasting Glucose Estimat Average Glucose Hemoglobin A1c % Calcium 11.5 H Magnesium Total Bilirubin 1.0 Direct Bilirubin 0.3 AST 16 ALT 34 Alkaline Phosphatase 139 H Total Protein 9.1 H Albumin 5.6 H Lipase 20 Urine Color Urine Appearance Urine pH Ur Specific [place] Urine Protein Urine Glucose (UA) Urine Ketones Urine Blood Urine Nitrite Ur Leukocyte Esterase Urine RBC Urine WBC Ur Squamous Epith Cells Urine Bacteria Hyaline Casts Acetone, Qual Influenza Type A (PCR) Influenza Type B (PCR) RSV RNA Qual (PCR) SARS-CoV-2 RNA (RT-PCR) 04/17/22 04/17/22 04/17/22 13:04 13:06 13:06 MCV MCH MCHC RDW Plt Count MPV Immature Gran % (Auto) Neut % (Auto) Lymph % (Auto) [place] % (Auto) Eos % (Auto) Baso % (Auto) Lymph # (Auto) [place] # (Auto) Eos # (Auto) Baso # (Auto) Abs Immat Gran (auto) Absolute Neuts (auto) Absolute Nucleated RBC Nucleated RBC % (auto) VBG pH VBG pCO2 VBG pO2 VBG HCO3 VBG O2 Saturation VBG Base Excess Anion Gap Estim Creat Clear Calc Estimated GFR POC Glucose Random Glucose Fasting Glucose Estimat Average Glucose Hemoglobin A1c % Calcium 11.5 H Magnesium 2.4 Total Bilirubin Direct Bilirubin AST ALT Alkaline Phosphatase Total Protein Albumin Lipase Urine Color Yellow Urine Appearance Clear Urine pH 5.0 Ur Specific [place] >= 1.030 H Urine Protein 30 (1+) H Urine Glucose (UA) >=1000 H Urine Ketones 40 Urine Blood Negative Urine Nitrite Negative Ur Leukocyte Esterase Negative Urine RBC 0-2 Urine WBC 0-5 Ur Squamous Epith Cells 0-2 Urine Bacteria None Seen Hyaline Casts 0-2 Acetone, Qual Small H Influenza Type A (PCR) NEGATIVE Influenza Type B (PCR) NEGATIVE RSV RNA Qual (PCR) NEGATIVE SARS-CoV-2 RNA (RT-PCR) NEGATIVE 04/17/22 04/17/22 04/17/22 13:10 13:11 13:23 MCV MCH MCHC RDW Plt Count MPV Immature Gran % (Auto) Neut % (Auto) Lymph % (Auto) [place] % (Auto) Eos % (Auto) Baso % (Auto) Lymph # (Auto) [place] # (Auto) Eos # (Auto) Baso # (Auto) Abs Immat Gran (auto) Absolute Neuts (auto) Absolute Nucleated RBC Nucleated RBC % (auto) VBG pH 7.32 VBG pCO2 32 VBG pO2 56 VBG HCO3 17 L VBG O2 Saturation 81.0 VBG Base Excess -7.3 Anion Gap Estim Creat Clear Calc Estimated GFR POC Glucose > 600 H* Random Glucose Fasting Glucose Estimat Average Glucose TNP Hemoglobin A1c % > 14.0 Calcium Magnesium Total Bilirubin Direct Bilirubin AST ALT Alkaline Phosphatase Total Protein Albumin Lipase Urine Color Urine Appearance Urine pH Ur Specific [place] Urine Protein Urine Glucose (UA) Urine Ketones Urine Blood Urine Nitrite Ur Leukocyte Esterase Urine RBC Urine WBC Ur Squamous Epith Cells Urine Bacteria Hyaline Casts Acetone, Qual Influenza Type A (PCR) Influenza Type B (PCR) RSV RNA Qual (PCR) SARS-CoV-2 RNA (RT-PCR) 04/17/22 04/17/22 04/17/22 13:25 13:58 14:47 MCV MCH MCHC RDW Plt Count MPV Immature Gran % (Auto) Neut % (Auto) Lymph % (Auto) [place] % (Auto) Eos % (Auto) Baso % (Auto) Lymph # (Auto) [place] # (Auto) Eos # (Auto) Baso # (Auto) Abs Immat Gran (auto) Absolute Neuts (auto) Absolute Nucleated RBC Nucleated RBC % (auto) VBG pH VBG pCO2 VBG pO2 VBG HCO3 VBG O2 Saturation VBG Base Excess Anion Gap Estim Creat Clear Calc Estimated GFR POC Glucose > 600 H* > 600 H* 466 H* Random Glucose Fasting Glucose Estimat Average Glucose Hemoglobin A1c % Calcium Magnesium Total Bilirubin Direct Bilirubin AST ALT Alkaline Phosphatase Total Protein Albumin Lipase Urine Color Urine Appearance Urine pH Ur Specific [place] Urine Protein Urine Glucose (UA) Urine Ketones Urine Blood Urine Nitrite Ur Leukocyte Esterase Urine RBC Urine WBC Ur Squamous Epith Cells Urine Bacteria Hyaline Casts Acetone, Qual Influenza Type A (PCR) Influenza Type B (PCR) RSV RNA Qual (PCR) SARS-CoV-2 RNA (RT-PCR) 04/17/22 04/17/22 04/17/22 15:53 16:21 17:16 MCV MCH MCHC RDW Plt Count MPV Immature Gran % (Auto) Neut % (Auto) Lymph % (Auto) [place] % (Auto) Eos % (Auto) Baso % (Auto) Lymph # (Auto) [place] # (Auto) Eos # (Auto) Baso # (Auto) Abs Immat Gran (auto) Absolute Neuts (auto) Absolute Nucleated RBC Nucleated RBC % (auto) VBG pH VBG pCO2 VBG pO2 VBG HCO3 VBG O2 Saturation VBG Base Excess Anion Gap 21 H Estim Creat Clear Calc 71.9 Estimated GFR > 60 POC Glucose 462 H* 311 H Random Glucose 446 H* Fasting Glucose Estimat Average Glucose Hemoglobin A1c % Calcium 9.4 D Magnesium Total Bilirubin 0.7 Direct Bilirubin AST 12 ALT 27 Alkaline Phosphatase 110 Total Protein 7.2 Albumin 4.6 Lipase Urine Color Urine Appearance Urine pH Ur Specific [place] Urine Protein Urine Glucose (UA) Urine Ketones Urine Blood Urine Nitrite Ur Leukocyte Esterase Urine RBC Urine WBC Ur Squamous Epith Cells Urine Bacteria Hyaline Casts Acetone, Qual Influenza Type A (PCR) Influenza Type B (PCR) RSV RNA Qual (PCR) SARS-CoV-2 RNA (RT-PCR) 04/17/22 04/17/22 04/17/22 20:01 21:06 22:35 MCV MCH MCHC RDW Plt Count MPV Immature Gran % (Auto) Neut % (Auto) Lymph % (Auto) [place] % (Auto) Eos % (Auto) Baso % (Auto) Lymph # (Auto) [place] # (Auto) Eos # (Auto) Baso # (Auto) Abs Immat Gran (auto) Absolute Neuts (auto) Absolute Nucleated RBC Nucleated RBC % (auto) VBG pH VBG pCO2 VBG pO2 VBG HCO3 VBG O2 Saturation VBG Base Excess Anion Gap 18 Estim Creat Clear Calc 82.9 Estimated GFR > 60 POC Glucose 324 H 244 H Random Glucose 318 H Fasting Glucose Estimat Average Glucose Hemoglobin A1c % Calcium 9.2 Magnesium Total Bilirubin Direct Bilirubin AST ALT Alkaline Phosphatase Total Protein Albumin Lipase Urine Color Urine Appearance Urine pH Ur Specific [place] Urine Protein Urine Glucose (UA) Urine Ketones Urine Blood Urine Nitrite Ur Leukocyte Esterase Urine RBC Urine WBC Ur Squamous Epith Cells Urine Bacteria Hyaline Casts Acetone, Qual Influenza Type A (PCR) Influenza Type B (PCR) RSV RNA Qual (PCR) SARS-CoV-2 RNA (RT-PCR) 04/17/22 04/18/22 04/18/22 23:44 05:11 05:11 MCV 84.2 MCH 28.8 MCHC 34.2 RDW 12.4 Plt Count 225 MPV 12.7 H Immature Gran % (Auto) Neut % (Auto) Lymph % (Auto) [place] % (Auto) Eos % (Auto) Baso % (Auto) Lymph # (Auto) [place] # (Auto) Eos # (Auto) Baso # (Auto) Abs Immat Gran (auto) Absolute Neuts (auto) Absolute Nucleated RBC 0.000 Nucleated RBC % (auto) 0.0 VBG pH VBG pCO2 VBG pO2 VBG HCO3 VBG O2 Saturation VBG Base Excess Anion Gap 17 Estim Creat Clear Calc 81.2 Estimated GFR > 60 POC Glucose 240 H Random Glucose Fasting Glucose 291 H Estimat Average Glucose Hemoglobin A1c % Calcium 8.9 Magnesium Total Bilirubin Direct Bilirubin AST ALT Alkaline Phosphatase Total Protein Albumin Lipase Urine Color Urine Appearance Urine pH Ur Specific [place] Urine Protein Urine Glucose (UA) Urine Ketones Urine Blood Urine Nitrite Ur Leukocyte Esterase Urine RBC Urine WBC Ur Squamous Epith Cells Urine Bacteria Hyaline Casts Acetone, Qual Influenza Type A (PCR) Influenza Type B (PCR) RSV RNA Qual (PCR) SARS-CoV-2 RNA (RT-PCR) 04/18/22 07:10 MCV MCH MCHC RDW Plt Count MPV Immature Gran % (Auto) Neut % (Auto) Lymph % (Auto) [place] % (Auto) Eos % (Auto) Baso % (Auto) Lymph # (Auto) [place] # (Auto) Eos # (Auto) Baso # (Auto) Abs Immat Gran (auto) Absolute Neuts (auto) Absolute Nucleated RBC Nucleated RBC % (auto) VBG pH VBG pCO2 VBG pO2 VBG HCO3 VBG O2 Saturation VBG Base Excess Anion Gap Estim Creat Clear Calc Estimated GFR POC Glucose 268 H Random Glucose Fasting Glucose Estimat Average Glucose Hemoglobin A1c % Calcium Magnesium Total Bilirubin Direct Bilirubin AST ALT Alkaline Phosphatase Total Protein Albumin Lipase Urine Color Urine Appearance Urine pH Ur Specific [place] Urine Protein Urine Glucose (UA) Urine Ketones Urine Blood Urine Nitrite Ur Leukocyte Esterase Urine RBC Urine WBC Ur Squamous Epith Cells Urine Bacteria Hyaline Casts Acetone, Qual Influenza Type A (PCR) Influenza Type B (PCR) RSV RNA Qual (PCR) SARS-CoV-2 RNA (RT-PCR) Assessment and Plan (1) DKA (diabetic ketoacidosis): Status: Acute Plan 31M no pmh, presented with polydipsia and polyuria, found to be in diabetic ketoacidosis New onset diabetes with diabetic ketoacidosis complicated by acute kidney injury Likely type 2 diabetes anion gap now closed now on basal bolus insulin change iv fluids to LR HUGO improving monitor bmp Diabetes Education Low risk for DVT, encourage ambulation Full code reason for continued hospitalization: better glucose control, iv fluids for hugo, dehydration from dka Quality Stroke Does the patient have a stroke diagnosis?: No VTE Prior VTE?: No VTE Risk Level:: Medical - low VTE Device Contraindication: Treatment Not Indicated VTE Drug Contraindication: Treatment Not Indicated
[2022-04-18 11:24] VITALS: BP 127/80; PULSE 69; RESP 16; TEMP 36.3; O2SAT 98
[2022-04-18 11:35] LABS: Glucose, Whole Blood 493 mg/dL (60-115)
[2022-04-18] MEDS: Insulin Lispro 100 UNIT/ML 3 ML VIAL 10 UNIT SUBCUT (12:12)
[2022-04-18 15:49] VITALS: BP 134/78; PULSE 62; RESP 18; TEMP 36.1; O2SAT 98
[2022-04-18 16:37] LABS: Glucose, Whole Blood 254 mg/dL (60-115)
[2022-04-18 19:19] VITALS: BP 119/65; PULSE 62; RESP 19; TEMP 36.8; O2SAT 98
[2022-04-18 20:03] LABS: Glucose, Whole Blood 256 mg/dL (60-115)
[2022-04-18 23:58] VITALS: BP 103/67; PULSE 60; RESP 18; TEMP 36.2; O2SAT 97
[2022-04-19] MEDS: Lactated Ringers 1,000 ML 100 ML IVCONT ×2 (03:20→11:56)
[2022-04-19 04:00] VITALS: BP 101/65; PULSE 64; RESP 18; TEMP 36.1; O2SAT 100
[2022-04-19 05:59] LABS: Hematocrit 40.4 % (42.0-52.0); Hemoglobin 13.7 g/dl (14.0-18.0); Mean Corpuscular HGB Conc 33.9 g/dl (31.0-36.0); Mean Corpuscular Hemoglobin 28.4 pg (27.0-33.0); Mean Corpuscular Volume 83.8 fL (80.0-98.0); Mean Platelet Volume 11.8 fL (9.4-12.4); Platelet Count 173 X10*3/uL (160-400); Red Blood Count 4.82 X10*6/uL (4.60-5.80); Red Cell Distribution Width 12.2 % (11.0-16.0); White Blood Count 6.8 X10*3/uL (4.8-10.8)
[2022-04-19 06:44] LABS: Anion Gap 13 (12-20); Blood Urea Nitrogen 15 mg/dL (9-16); Calcium 8.3 mg/dL (8.4-10.2); Carbon Dioxide 23 mmol/L (22-29); Chloride 104 mmol/L (96-108); Creatinine Clr Calc Pharmacy 112.9; Estimated Glomerular Filt Rate > 60; Glucose Fasting 215 mg/dL (60-99); Potassium 3.9 mmol/L (3.3-5.1); Sodium 136 mmol/L (135-145)
[2022-04-19 07:48] VITALS: BP 114/78; PULSE 66; RESP 16; TEMP 36.4; O2SAT 99
[2022-04-19 08:09] LABS: Glucose, Whole Blood 221 mg/dL (60-115)
[2022-04-19] MEDS: Insulin Glargine,Hum.rec.anlog 100 UNIT/ML 10 ML VIAL 15 UNIT SUBCUT (08:35)
[2022-04-19] MEDS: Insulin Lispro 100 UNIT/ML 3 ML VIAL SUBCUT ×4 (08:35→11:59)
--- NOTE | 2022-04-19 10:21 | PM.DS ---
DS: Providers Provider Date of Service: 04/19/22 Date of admission: 04/17/22 18:01 Primary care physician: None Physician DS: Diagnosis Discharge Diagnosis (1) DKA (diabetic ketoacidosis): Status: Acute DS: Summary Hospital Course Hospital Course: from initial hpi: Chief Complaint: abd pain, polydypsia 31M no significant PMH, presented with 3 day history feeling unwell.? Patient reports that he has been drinking more than usual and urinating more than usual.? Unable to quench his thirst.? Feeling unwell with decreased appetite and abdominal pain.? Denies nausea vomiting.? Patient's mother has diabetes type 2.? In ED noted to be in diabetic ketoacidosis with an anion gap of 28, A1c over 14, glucose over 600, HUGO with a creatinine of 1.85.? Patient was given IV fluids and insulin and creatinine improved as well as glucose and anion gap.? Patient has an appetite, denies fever chills. hospital course: Patient was admitted for new onset diabetes with diabetic ketoacidosis complicated by acute kidney injury. He was treated with insulin and I anion gap closed. He was given IV fluids and HUGO resolved. His diet improved he was able to tolerate solids. Sugars became better controlled. He will be discharged home on metformin and basal bolus insulin. He should follow-up with a primary care doctor to continue diabetes management. Time Spent with Patient Time attestation: Total time spent providing and/or coordinating discharge services: Discharge coordination time: Greater than 30 minutes Quality: Safe Use of Opioids Does Pt have an Active Cancer Diagnosis on the Problem List?: No Quality: Stroke Does the patient have a stroke diagnosis?: No Physical Exam Vital Signs: Vital Signs: Last Vital Signs Temp 97.5 F 04/19/22 07:48 Pulse 66 04/19/22 07:48 Resp 16 04/19/22 07:48 BP 114/78 04/19/22 07:48 Pulse Ox 99 04/19/22 07:48 O2 Del Method 04/19/22 07:48 BMI result Body Mass Index 28.9 General: AO X 3, no acute distress Resp: CTA bilateral, no accessory muscles used CVS: S1,S2,RRR GI: soft, non tender, non distended Neuro: motor grossly intact, alert Psych: appropriate affect, appropriate insight DS: Data Data Completed and Pending Labs on day of discharge: Laboratory Results - last 24 hr 04/18/22 04/18/22 04/18/22 11:27 16:33 19:37 WBC RBC Hgb Hct MCV MCH MCHC RDW Plt Count MPV Absolute Nucleated RBC Nucleated RBC % (auto) Sodium Potassium Chloride Carbon Dioxide Anion Gap BUN Creatinine Estim Creat Clear Calc Estimated GFR POC Glucose 493 H* 254 H 256 H Fasting Glucose Calcium 04/19/22 04/19/22 04/19/22 05:46 05:46 07:46 WBC 6.8 RBC 4.82 Hgb 13.7 L Hct 40.4 L MCV 83.8 MCH 28.4 MCHC 33.9 RDW 12.2 Plt Count 173 MPV 11.8 Absolute Nucleated RBC 0.000 Nucleated RBC % (auto) 0.0 Sodium 136 Potassium 3.9 Chloride 104 Carbon Dioxide 23 Anion Gap 13 BUN 15 Creatinine 0.87 Estim Creat Clear Calc 112.9 Estimated GFR > 60 POC Glucose 221 H Fasting Glucose 215 H Calcium 8.3 L D Discharge Plan Discharge Anticipated Discharge Date/Time: 04/19/22 10:16 Patient Disposition: Home, Self-Care Discharge Diagnosis: DM, DKA, HUGO Referrals: Physician,None [Primary Care Provider] - 1 Week Discharge Medications: New (DME) lancets [FreeStyle Lancets] 28 gauge misc See Rx Instructions .Route Qty: 100 0RF Rx Instructions: As directed (DME) blood-glucose meter [FreeStyle Lite Meter] Kit See Rx Instructions .Route Qty: 1 0RF Rx Instructions: As directed (DME) FreeStyle Lite Strips Strip See Rx Instructions .Route Qty: 100 0RF Rx Instructions: As directed insulin glargine [Lantus U-100 Insulin] 100 unit/mL Solution 15 unit subcut DAILY 30 Days Qty: 4.5 0RF alcohol swabs [Alcohol Pads] Pads, Medicated 1 pad topical NEEDED Qty: 200 0RF insulin lispro [Humalog U-100 Insulin] 100 unit/mL Solution 5 unit subcut TIDAC 30 Days Qty: 10 0RF Protocol: Insulin Correction Scale Less than or equal to 110 ---- Give (units): 0 111 to 150 Give (units): 0 151 to 200 Give (units): 2 201 to 250 Give (units): 4 251 to 300 Give (units): 6 301 to 350 Give (units): 8 Greater than 350 Give (units): 10 Call MD if Blood Glucose > : 350 Rx Instructions: correction dose based on premeal glucose metformin 1,000 mg tablet 1,000 mg PO BIDWMEAL Qty: 60 0RF Discharge Orders: Discharge Order (Routine); Ordered 04/19/22 Ordered By: Mateus Tay Diet: Diabetic diet Activity on Discharge: As tolerated Stand Alone Forms: Patient Portal Discharge page Care Plan Goals: manage new DM Health Concerns: new DM Plan of Treatment: start meds as prescribed, follow up pcp Assessment: see above
[2022-04-19] MEDS: Acetaminophen 325 MG TABLET 650 MG PO (10:25)
--- NOTE | 2022-04-19 10:26 | MHC.CM.PN ---
PT WILL DC HOME TODAY WITH NO SERVICES. PT TO ARRANGE TRANSPORT
[2022-04-19 10:58] VITALS: BP 118/72; PULSE 74; RESP 16; TEMP 36.1; O2SAT 99
[2022-04-19 11:21] LABS: Glucose, Whole Blood 311 mg/dL (60-115)
--- NOTE | 2022-04-19 12:16 | MHC.CM.PN ---
PT HAS BEEN CLEARED TO DC TODAY PT CAME IN WITH DKA AND HAS NEWLY DIAGNOSED DIABETES PT DOES NOT HAVE HEALTH INSURANCE OR A PCP HE REPORTS THE ED CM GAVE HIM THE NUMBER TO [facility] CM ALSO INFORMED HIM HE COULD APPLY FOR HEALTH SAFETY NET AND HOSPITAL VISITS AND CLINICS WOULD BE COVERED WHILE HE WAITS FOR HIS HEALTH INSURANCE TO BECOME ACTIVE HE ALSO ACKNOWLEDGES THE IMPORTANCE OF CONNECTING WITH A NEW PCP HE DOES REPORT HE HAS SIGNED UP FOR INSURANCE THROUGH HIS JOB, IT JUST IS NOT ACTIVE YET PT WILL DC HOME TODAY WITH NO SERVICES PT WILL ARRANGE TRANSPORT
== END 2022-04-19 14:45 | disposition home or self-care (01) | DRG 638 ==
LOC: HO.ED 17:59 → HO.EDOVER 18:05 → HO.S3 04-18 01:47
PROVIDERS: Emergency Medicine Emergency Medical Services; Physician Assistant Medical; Admitting Provider Internal Medicine; Emergency Provider Emergency Medicine Emergency Medical Services; Visit Provider Internal Medicine
DX: E11.10 Type 2 diabetes mellitus with ketoacidosis without coma (principal); N17.9 Acute kidney failure, unspecified; E86.0 Dehydration; Z20.822 Contact with and (suspected) exposure to COVID-19
CPT/HCPCS: 0241U; 36415; 74176; 80048; 80053; 80076; 81001; 82009; 82310; 82803; 82947; 83036; 83690; 83735; 85025; 85027; 93005; 99285; J2405

== ENCOUNTER 2024-06-07 09:22 | Outpatient (REF) | payer SELFPAY ==
[2024-06-07 14:29] LABS: MANUAL DIFF FLAG NO
[2024-06-07 14:36] LABS: Basophils Percent Auto 0.3 % (0-2); Eosinophils Percent Auto 0.3 % (0-4); Hematocrit 40.8 % (42.0-52.0); Imm Gran Abs Auto 0.02 X10*3/uL (0.00-0.03); Imm Gran Pct Auto 0.3 % (0.0-0.4); Lymphocytes Absolute Auto 1.6 X10*3/uL (1.2-4.9); Mean Corpuscular HGB Conc 34.3 g/dl (31.0-36.0); Mean Corpuscular Hemoglobin 29.2 pg (27.0-33.0); Mean Corpuscular Volume 85.2 fL (80.0-98.0); Mean Platelet Volume 11.4 fL (9.4-12.4); Monocytes Absolute Auto 0.7 X10*3/uL (0.1-1.2); Monocytes Percent Auto 8.6 % (2-11); Neutrophils Absolute Auto 5.3 x10*3/uL (2.0-8.3); Neutrophils Percent Auto 69.5 % (45-73); Platelet Count 231 X10*3/uL (160-400); Red Blood Count 4.79 X10*6/uL (4.60-5.80); Red Cell Distribution Width 12.8 % (11.0-16.0); White Blood Count 7.5 X10*3/uL (4.8-10.8)
[2024-06-07 14:47] LABS: Alanine Aminotransferase 61 U/L (0-40); Albumin Level 4.9 g/dL (3.5-5.0); Anion Gap 15 (12-20); Aspartate Amino Transferase 54 U/L (5-37); Bilirubin Total 0.6 mg/dL (0.0-1.0); Blood Urea Nitrogen 11 mg/dL (9-16); Calcium 9.5 mg/dL (8.4-10.2); Carbon Dioxide 24 mmol/L (22-29); Chloride 108 mmol/L (96-108); Cholesterol 168 mg/dL (<200); Estimated Glomerular Filt Rate > 60; Glucose Random 113 mg/dL (60-115); HDL Cholesterol 32 mg/dL (>40); LDL Cholesterol Calculated 106 mg/dL (<100); Potassium 3.8 mmol/L (3.3-5.1); Sodium 143 mmol/L (135-145); Total Protein 8.3 g/dL (6.5-8.0); Triglycerides 153 mg/dL (<150)
[2024-06-07 14:56] LABS: Alkaline Phosphatase 72 U/L (39-117)
[2024-06-07 15:04] LABS: Creatinine Urine 347.92 mg/dL; Microalbum/Creatinine Ratio Ur 35.3 ug/mg cr (<30)
[2024-06-07 15:13] LABS: TSH reflex Free T4 0.49 uIU/mL (0.32-4.0)
[2024-06-08 08:38] LABS: HIV AB/AG Nonreactive (Nonreactive); HIV Num 1 0.05 S/CO (0.00-0.99); ~HepC Num1 0.06 S/CO (0.00-0.79); ~Hepatitis C Antibody Nonreactive (Nonreactive)
== END 2024-06-07 09:23 | disposition home or self-care (01) ==
LOC: HO.CHCLDS 09:22
PROVIDERS: Visit Provider Internal Medicine
DX: E11.9 Type 2 diabetes mellitus without complications (principal); Z79.4 Long term (current) use of insulin
CPT/HCPCS: 36415; 80053; 80061; 82043; 82570; 84443; 85025; 86803; 87389

== ENCOUNTER 2025-02-01 09:09 | Outpatient (REF) | payer SELFPAY ==
--- OUTSIDE RECORDS SUMMARY | 2025-02-01 10:40 | XMS_ITS | Encounter Summary ---
Author Organization [employer] Address [address] [facility] 7[address] [place] [address] Care Team Providers Care Prototype Machine Operator Name Role Phone Ayan Alfonso MD Primary Care Prov ider Encounter Details Date Type Department Care Team ([facility] st Contact Info) Description 12/31/2024 Orders Only [facility] [address] [place], [place] [phone] Ayan Alfonso MD [address] [place] [address] Social History Tobacco Use Types Packs/Day Years Used Date Smoking Tobacco: Never Smokeless Tobacco: Never Alcohol Use Standard Drinks/Week Comments Never 0 (1 standard drink = 0.6 oz pur e alcohol) Depression Answer Date Recorded Patient Health Questionnaire-9 Score 2 04/12/2024 Patient Health Questionnaire-9 Score 2 04/12/2024 Last PHQ-9: Questionnaire Data Not on file 1 06/13/2023 Housing Stability Answer Date Recorded What is your housing situation today? I have liliam henderson 04/12/[address] you li ve. Do you have problems with any of the following? None of the above 04/12/2024 Food Insecurity Answer Date Recorded Within the past 12 months, y ou worried that your food would run out before you got money to buy more: Never True 04/12/2024 Within the past 12 months,th e food you bought just didn't last and you didn't have enough money to get more: Never True 06/2023 Transportation Answer Date Recorded In the past 12 months, has l ack of transportation kept you from medical appts, meetings, work or from getting things needed for daily living? No 04/12/2024 Utilities Answer Date Recorded In the past 12 months, has t he electric, gas, oil or water company threatened to shut off services in your home? No 04/12/2024 Depression Answer Date Recorded Patient Health Questionnaire-2 Score 2 04/12/2024 Internet Access Answer Date Recorded Internet Access Q1 Yes 04/12/2024 Internet Access Q2 Not on file 04/12/2024 Sex and Gender Information Value Date Recorded Sex Assigned at Male 09/01/2023 9:55 AM EDT Legal Sex Male 9:54 AM EDT Gender Identity Male 09/01/2023 9:55 AM EDT Sexual Orientation Don't know 04/12/2024 12 :32 PM EST documented as of this encounter Plan of Treatment Upcoming Encounters Date Type Department Care Team (Late st Contact Info) Description 02/03/2025 3:45 PM EDT Office Visit [facility] [address] [place] [address] Ayan Alfonso MD [address] [place] [address] documented as of this encounter Visit Diagnoses Not on filedocumented in this encounter Additional Health Concerns Assessment Noted Time PHQ-9 Depression Total Score: 2 04/12/20 24 2:52 PM EST documented as of this encounter Care Teams Prototype Machine Operator Relationship Specialty Start Date End Date Ayan Alfonso MD [address] [place] [address] PCP - General Internal Medicine 04/12/24 documented as of this encounter
--- OUTSIDE RECORDS SUMMARY | 2025-02-01 10:41 | XMS_ITS | Clinical Summary ---
Author Organization [employer] Address [address] [facility] 7t [place] [address] Care Team Providers Care Medical/Surgery Registered Nurse Name Role Phone Ayan Alfonso MD Primary Care Prov ider Allergies Active Allergy Reactions Criticality Noted Date Comments Coconut Flavoring Agent (Non-Screening) Itching 04/13/2024 Medications insulin aspart protamine-insu drea aspart (NovoLOG Mix 70-30) (70-30) 100 UNIT/ML injection Inject 5 Units under the skin before breakfast, before lunch, and before evening meal. 10 mL 12 01/05/20 026 Active empagliflozin (Jardiance) 10 MG Take 1 tablet (10 mg) by mouth Once per day. 30 tablet 11 01/05/20 026 Active insulin glargine (Lantus) 100 UNIT/ML injection Inject 15 Units under the skin at bedtime. 10 mL 3 01/27/20 25 026 Active Dulaglutide (Trulicity) 0.75 MG/0.5ML solution auto-injectorI ndications:Typ e 2 diabetes mellitus without complication, with long-term current use of insulin ([facility]) Inject 0.75 mg under the skin 1 (one) time per week. 3 mL 1 05/24/19 025 Discontinued insulin glargine (Lantus) 100 UNIT/ML injection Inject 10 Units under the skin at bedtime. 3 mL 05/24/19 25 025 Discontinued(Re order (will not trigger notification to Pharmacy)) insulin glargine (Lantus) 100 UNIT/ML injection Inject 15 Units under the skin at bedtime. 4.5 mL 11 01/05/20 25 025 Discontinued(Re order (will not trigger notification to Pharmacy)) Active Problems Problem Noted Date Diagnosed Date Encounter to establish care 04/13/2024 Assessment & Plan (04/13/2024 10:29 AM EST): Last pcp follow up 2010 Er visit in the past year:- Hospitalization: 2021 due to DKA Pmhx: DM since 2021 Pshx- All coconut Meds: lantus 10 units daily, novolog 5-15 units per scale Type 2 diabetes mellitus wit hout complication, with long-term current use of insulin 04/13/2024 Assessment & Plan (01/04/2025 3:07 PM EDT): Patient has been running from 90-170, using his mothers insulin, will increase lantus to 15 units, start jardiance and aspart sliding scale Assessment & Plan (05/24/2024 8:21 PM EST): Continue lantus 10 units, will add trulicity, A1c is controlled 6.2%, reasoning for glp1 is cardiovascular protection and simplicity of therapy Assessment & Plan (04/13/2024 10:31 AM EST): Patient has been using lantus and novolog from a family member, he has been monitoring his glucose at home and refers ranges from 150-180 Will refer for eye exam Encounters Date Type Department Care Team Description 01/28/2025 Travel 01/26/2025 Orders Only [facility] [address] [place] [address] Ayan Alfonso MD 01/21/2025 Telephone [facility] [address] [place] [address] Ayan Alfonso MD Med Refill 01/04/2025 2:15 PM EDT Telemedicine [facility] [address] [place] [address] Ayan Alfonso MD Type 2 diabetes mellitus without complication, with long-term current use of insulin ([facility]/HCC) (Primary Dx) 01/04/2025 Telephone [facility] [address] [place], [place] [phone] Ayan Alfonso MD Medication Question 01/04/2025 Travel 01/03/2025 Telephone [facility] [address] [place], [place] [phone] Ayan Alfonso MD chart prep 12/31/2024 Orders Only [facility] [address] [place], [place] [phone] Ayan Alfonso MD 12/31/2024 Travel from Last 3 Months Family History Medical History Relation Name Comments Diabetes Father Diabetes Mother Gout Mother Hypertension Mother Cancer Mother's Brother Relation Name Status Comments Father Mother Mother's Brother Social History Tobacco Use Types Packs/Day Years Used Date Smoking Tobacco: Never Smokeless Tobacco: Never Tobacco Cessation:Counseling Given: Not Answered Alcohol Use Standard Drinks/Week Comments Never 0 [...] Don't know 04/12/2024 12 :32 PM EST Last Filed Vital Signs Vital Sign Reading Time Taken Comments Blood Pressure 136/88 05/24/2024 1:57 PM EST Pulse 80 05/24/2024 1:57 PM EST Temperature 36.5 C (97.7 F) 05/24/2024 1:57 PM EST Respiratory Rate 22 05/24/2024 1:57 PM EST Oxygen Saturation 98% 05/24/2024 1:57 PM EST Inhaled Oxygen Concentration - - Weight 88.6 kg (195 lb 4 oz) 05/24/2024 1:57 PM EST Height 152.4 cm (5') 05/24/2024 1:57 PM EST Body Mass Index 38.13 05/24/2024 1:57 PM EST Plan of Treatment Upcoming Encounters Date Type Department Care Team (Late st Contact Info) Description 02/03/2025 3:45 PM EDT Office Visit [facility] [address] [place] [address] Ayan Alfonso MD [address] [place] [address] Health Maintenance Due Date Last Done Comments Diabetes: Foot Exam 1998 Eye Exam 1998 Family Planning (PISQ) 09/22/2003 HPV Vaccines (1 - Male 3-dos e series) 09/22/2003 DTaP/Tdap/Td Vaccines (1 - Tdap) 09/22/2007 Hepatitis B Vaccines (1 of 3 - 19+ 3-dose series) 09/22/2007 Pneumococcal Vaccine: Pediatrics (0 to 5 Years) and At-Risk Patients (6 to 49) Years (1 of 2 - PCV) 09/22/2007 Diabetes: Hemoglobin A1C 11/21/2024 05/24/2024 COVID-19 Vaccine (1 - 2023-2 5 season) 2025 Influenza Vaccine (#1) 2025 Depression Screening 04/12/2025 04/12/2024, 04/12/2024 SDOH Screening 04/12/2025 04/12/2024 Tobacco Screening 05/24/2025 05/24/2024 Diabetes: Urine Protein Screening 06/07/2025 06/07/2024 Lipid Panel 06/07/2025 06/07/2024 Disability Screening 12/31/2025 12/31/2024 Alcohol/Substance Use Screening 01/04/2026 01/04/2025 Zoster Vaccines (1 of 2) 2038 RSV Patients and Patients Aged 60 years or older (1 - 1-dose 75+ series) 09/22/2063 HIV Screening Completed 06/07/2024 Hepatitis C Screening Completed 06/07/2024 HIB Vaccines Aged Out No longer eligi ble based on patient's age to complete this topic Hepatitis A Vaccines Aged Out No long er eligible based on patient's age to complete this topic IPV Vaccines Aged Out No longer eligi ble based on patient's age to complete this topic Meningococcal B Vaccine Aged Out No l onger eligible based on patient's age to complete this topic Meningococcal Vaccine Aged Out No yudi deepika eligible based on patient's age to complete this topic RSV under 20 months Aged Out No longe r eligible based on patient's age to complete this topic Rotavirus Vaccines Aged Out No longer eligible based on patient's age to complete this topic Procedures Procedure Name Priority Date/Time Associated Diagnosis Comments ALBUMIN, RANDOM URINE W/CREATININE Routine 06/07/2024 9:30 AM EST Type 2 diabetes mellitus without complication, with long-term current use of insulin (CMS/HCC) HEPATITIS C AB W/REFL TO HCV RNA, QN, PCR Routine 06/07/2024 9:23 AM EST Type 2 diabetes mellitus without complication, with long-term current use of insulin (CMS/[facility]) HIV 1/2 ANTIGEN/ANTIBODY, FOURTH GENERATION W/RFL Routine 06/07/2024 9:23 AM EST Type 2 diabetes mellitus without complication, with long-term current use of insulin (CMS/[facility]) LIPID PANEL, STANDARD Routine 06/07/2024 9:23 AM EST Type 2 diabetes mellitus without complication, with long-term current use of insulin (CMS/HCC) POCT GLYCATED HEMOGLOBIN, TOTAL Routine 05/24/2024 2:07 PM EST Type 2 diabetes mellitus without complication, with long-term current use of insulin (CMS/HCC) from Last 3 Months or Most Recently Relevant to Health Maintenance Results * (ABNORMAL) Albumin, Random Urine W/Creatinine (06/07/2024 9:30 AM EST) Creatinine, Urine 347.92 mg/dL [facility] Microalbumin Urine 123.0 mg/L [facility] Microalbum Creatinine Ratio Ur 35.3(H) <30 ug/mg cr [facility] Comment:Albumin/Creatinine R atio Reference Ranges: Normal: < 30 ug/mg creatinine Microalbuminuria: 30 - 300 ug/mg creatinineClinical Albuminuria: > 300 ug/mg creatinine Urine (Urine, Random) 06/07/2024 9:30 AM EST 06/07/2024 2:14 PM EST Ayan Strong MD LAB URINE ORDERABL ES Final Result Performing Organization Address [facility] Co de Phone Number [facility] [address] [place] [address] [phone] * Hepatitis C Antibody with Reflex to HCV, RNA, Quantitative, Real-Time PCR (06/07/2024 9:23 AM EST) Hepatitis C Antibody Nonreactive Nonreactive [facility] Comment:Antibodies to HCV no t detected; does not exclude early acuteHCV infection. Blood Venous blood specimen / Unknown 06/07/2024 9:23 AM EST 06/07/2024 2:21 PM EST Ayan Strong MD LAB BLOOD ORDERABL ES Final Result Performing Organization Address City/State/[facility] Co de Phone Number [facility] [address] [place] [address] [phone] * HIV-1/2 Antigen and Antibodies, Fourth Generation, with Reflexes (06/07/2024 9:23 AM EST) HIV AB/AG Nonreactive Nonreactive [facility] Comment:HIV-1 p24 Ag and/or HIV-1/HIV-2 Ab not detected.A test result that is nonreactive does not exclude thepossibility of exposure to or infection with HIV-1 and/orHIV-2. Nonreactive results in this assay for individualswith prior exposure to HIV-1 and/or HIV-2 may be due toantigen and antibody levels that are below the limit ofdetection of this assay.The Vessel HIV Ag/Ab Combo assay result andsupplemental assay results should be interpreted inconjunction with the patient's clinical presentation,history and other laboratory results. If the results areinconsistent with clinical evidence, additional testing issuggested to confirm the result. Blood Venous blood specimen / Unknown 06/07/2024 9:23 AM EST 06/07/2024 2:21 PM EST Ayan Strong MD LAB BLOOD ORDERABL ES Final Result Performing Organization Address [facility] Co de Phone Number [facility] [address] [place] [address] [phone] * (ABNORMAL) Lipid Panel, Standard (06/07/2024 9:23 AM EST) Triglycerides 153(H) <150 mg/dL [facility] Comment:Desirable Triglyceri de: less than 150 mg/dLBorderline High Triglyceride 150-199 mg/dLHigh Triglyceride: 200-499 mg/dLVery High Triglyceride: greater than or equal to 5OO mg/dL Cholesterol 168 <200 mg/dL [facility] Comment:Desirable Cholestero l: less than 200 mg/dLBorderline High Cholesterol: 200-239 mg/dLHigh Cholesterol: greater than 239 mg/dL LDL Cholesterol Calculated 106(H) <100 mg/dL [facility] Comment:Desirable LDL: less than 100 mg/dLNear Optimal/Above Optimal LDL: 110- 129 mg/dLBorderline High LDL: 130-159 mg/dLHigh LDL: 160-189 mg/dLVery High LDL: greater than or equal to 190 mg/dL HDL Cholesterol 32(L) >40 mg/dL [facility] Comment:Desirable HDL: great er than 40 mg/dL Note: This HDL assay may give artificially low results in patients with liver disease. Blood Venous blood specimen / Unknown 06/07/2024 9:23 AM EST 06/07/2024 2:21 PM EST Ayan Strong MD LAB BLOOD ORDERABL ES Final Result [facility] [address] [place] [phone] * (ABNORMAL) POCT HGB A1C (05/24/2024 2:07 PM EST) Hemoglobin A1C 6.2(A) 4.0 - 6.0 % QC Media Lot # [id number] Lot# Expiration Date [id number] Blood 05/24/2024 2:07 PM EST Ayan Strong MD POINT OF CARE TEST ENTER/EDIT ORDERABLES Final Result from Last 3 Months or Most Recently Relevant to Health Maintenance Insurance [facility] Care Teams Medical/Surgery Registered Nurse Relationship Specialty Start Date End Date Ayan Alfonso MD [address] [place] [phone] PCP - General Internal Medicine 04/12/24
--- OUTSIDE RECORDS SUMMARY | 2025-02-01 10:41 | XMS_ITS | Encounter Summary ---
Author Organization [employer] Address [address] [facility] 7 [place] [address] Care Team Providers Care Industrial Gas Servicer Name Role Phone Ayan Alfonso MD Primary Care Prov ider Reason for Visit * Reason Onset Date Comments Medication Question 01/04/2025 Encounter Details Date Type Department Care Team ([facility] st Contact Info) Description 01/04/2025 Telephone [facility] [address] [place] [address] Ayan Alfonso MD [address] [place] [address] Medication Question Social History Tobacco Use Types Packs/Day Years [...] PM EST documented as of this encounter Miscellaneous Notes * Telephone Encounter - Romana Hayes RN - 01/05/2025 11:09 AM EDT Called [facility] pharmacy. Informed pharmacy staff that provider was requesting the Lantus pen. Staffstated the amount that the original order is not enough . Will route to provider for review and recommendations. * Telephone Encounter - Sally Tomlin - 01/04/2025 2:46 PM EDT Tc from Mike Thomas with [facility] pharmacy requesting clarification on the quality of insulin aspart protamine-insulin aspart (NovoLOG Mix 70-30) (70-30) 100 UNIT/ML injection documented in this encounter Plan of Treatment Upcoming Encounters Date Type Department Care Team (Late st Contact Info) Description 02/03/2025 3:45 PM EDT Office Visit [facility] [address] [place] [address] Ayan Alfonso MD [address] [place], [place] [phone] documented as of this encounter Visit Diagnoses Not on filedocumented in this encounter Additional Health Concerns Assessment Noted Time PHQ-9 Depression Total Score: 2 04/12/20 24 2:52 PM EST documented as of this encounter Care Teams Industrial Gas Servicer Relationship Specialty Start Date End Date Ayan Alfonso MD [address] [place] [phone] PCP - General Internal Medicine 04/12/24 documented as of this encounter
--- OUTSIDE RECORDS SUMMARY | 2025-02-01 10:41 | XMS_ITS | Encounter Summary ---
Author Organization [employer] Address [address] [facility] 7t [place] [address] Care Team Providers Care Water Use Inspector Name Role Phone Ayan Alfonso MD Primary Care Prov ider Encounter Details Date Type Department Care Team ([facility] st Contact Info) Description 01/26/2025 Orders Only [facility] [address] [place], [place] [phone] Ayan Alfonso MD [address] [place] [address] Social History Tobacco Use Types Packs/Day Years [...] 3:45 PM EDT Office Visit [facility] [address] [place] [address] Ayan Alfonso MD [address] [place] [address] documented as of this encounter Visit Diagnoses Not on filedocumented in this encounter Additional Health Concerns Assessment Noted Time PHQ-9 Depression Total Score: 2 04/12/20 24 2:52 PM EST documented as of this encounter Care Teams Water Use Inspector Relationship Specialty Start Date End Date Ayan Alfonso MD [address] [place] [address] PCP - General Internal Medicine 04/12/24 documented as of this encounter
--- OUTSIDE RECORDS SUMMARY | 2025-02-01 10:41 | XMS_ITS | Encounter Summary ---
Author Organization [employer] Address [address] [facility] [address] [place] [address] Care Team Providers Care Creasing Machine Operator Name Role Phone Ayan Alfonso MD Primary Care Prov ider Encounter Details Date Type Department Care Team (Latest Contact Info) Description 01/28/2025 Travel Social History Tobacco Use Types Packs/Day Years [...] Description 02/03/2025 3:45 PM EDT Office Visit [facility] [address] [place] [address] Ayan Alfonso MD [address] [place] [address] documented as of this encounter Visit Diagnoses Not on filedocumented in this encounter Additional Health Concerns Assessment Noted Time PHQ-9 Depression Total Score: 2 04/12/20 24 2:52 PM EST documented as of this encounter Care Teams Creasing Machine Operator Relationship Specialty Start Date End Date Ayan Alfonso MD [address] [place] [address] PCP - General Internal Medicine 04/12/24 documented as of this encounter
[2025-02-01 14:53] LABS: Alanine Aminotransferase 119 U/L (0-40); Albumin Level 4.9 g/dL (3.5-5.0); Alkaline Phosphatase 88 U/L (39-117); Anion Gap 13 (12-20); Aspartate Amino Transferase 72 U/L (5-37); Blood Urea Nitrogen 16 mg/dL (9-16); Calcium 9.2 mg/dL (8.4-10.2); Carbon Dioxide 27 mmol/L (22-29); Chloride 107 mmol/L (96-108); Cholesterol 188 mg/dL (<200); Estimated Glomerular Filt Rate > 60; HDL Cholesterol 33 mg/dL (>40); Hemoglobin A1C 199.5065 umol/L; Potassium 4.1 mmol/L (3.3-5.1); Sodium 143 mmol/L (135-145); Total Hemoglobin (HGBA1C) 3432.5462 umol/L; Total Protein 7.5 g/dL (6.5-8.0); Triglycerides 277 mg/dL (<150)
== END 2025-02-01 09:10 | disposition home or self-care (01) ==
LOC: HO.CHCLDS 09:09
PROVIDERS: Visit Provider Internal Medicine
DX: E11.9 Type 2 diabetes mellitus without complications (principal); Z79.4 Long term (current) use of insulin
CPT/HCPCS: 36415; 80053; 80061; 83036